=== PATIENT | female | born 2000 | race Caucasian/White ===

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

== ENCOUNTER 2021-12-12 15:33 | Outpatient (CLI) | payer OTHER, SELFPAY | END 2021-12-12 23:59 | disposition home or self-care (01) | PROVIDERS: PCP Pediatrics; Visit Provider Obstetrics & Gynecology | DX: Z34.81 Encounter for supervision of other normal pregnancy, first trimester (principal) | CPT/HCPCS: 87086; 87088 ==

== ENCOUNTER → 2022-03-28 | Outpatient (CLI) | payer OTHER, SELFPAY ==
[2022-03-28 15:29] LABS: Hematocrit 34.7 % (37-47); Hemoglobin 11.5 g/dL (12.0-15.0); Mean Corp Hgb Conc 33.1 g/dL (32-36); Mean Corpuscular Hgb 28.6 pg (27.0-32.0); Mean Corpuscular Volume 86.3 fL (81-99); Platelet Count 150 K/mm3 (150-450); RBC Distribution Width CV 13.6 % (11.6-14.6); RBC Distribution Width SD 42.6 fl (35.1-43.9); Red Blood Count 4.02 M/mm3 (4.2-5.4); White Blood Count 6.1 K/mm3 (4.4-11.0)
[2022-03-28 15:39] LABS: Glucose Challenge Gest 1H 50g 120 mg/dL (70-140)
== END | disposition home or self-care (01) ==
PROVIDERS: PCP Pediatrics; Visit Provider Obstetrics & Gynecology
DX: Z34.83 Encounter for supervision of other normal pregnancy, third trimester (principal)
CPT/HCPCS: 36415; 82950; 85027

== ENCOUNTER → 2022-04-17 | Outpatient (CLI) | payer OTHER, SELFPAY | END | disposition home or self-care (01) | LOC: WOBLAB 14:51 | PROVIDERS: PCP Pediatrics; Visit Provider Obstetrics & Gynecology | DX: Z34.83 Encounter for supervision of other normal pregnancy, third trimester (principal) | CPT/HCPCS: 36415 ==

== ENCOUNTER → 2022-06-13 | Outpatient (CLI) | payer OTHER, SELFPAY | END | disposition home or self-care (01) | LOC: LABSPEC 09:41 | PROVIDERS: PCP Registered Nurse; Visit Provider Obstetrics & Gynecology | DX: Z36.85 Encounter for antenatal screening for Streptococcus B (principal) | CPT/HCPCS: 87081 ==

== ENCOUNTER 2022-07-03 08:05 | Inpatient (IN) | payer OTHER, SELFPAY ==
[2022-07-03] VITALS (33 sets, daily range): BP systolic 120–147; BP diastolic 58–90; PULSE 87–116; RESP 16–18; TEMP 36.6–38.1; O2SAT 89–100; BMI 33.5
--- NOTE | 2022-07-03 10:41 | PCM.HP.BLA ---
History and Physical Date of Admission: 07/03/22 Chief complaint: Contractions History present illness: 21-year-old G1, P0 at 39 weeks and 1 day with YUAN: 07/09/2022 arrives with contractions. Denies headache, vision change, chest pain, shortness of breath, nausea vomit, right upper quadrant pain. Patient states good movement. Obstetric history: G1: Current Past medical history: Asthma Medications: Albuterol, vitamin Past surgical history: None Allergies: Bactrim, penicillin Social history: Denies smoking, alcohol use, drug use Family history: Denies history DVT or PE Review of systems: Besides above pertinent positives a full review of systems was performed and found to be negative Physical exam: Vitals: Pending General: Normal-appearing no acute distress HEENT: Normocephalic atraumatic no cervical of adenopathy Cardiac/respiratory: No use of accessory muscles, nonlabored breathing Abdomen: Soft, nontender, gravid Pelvic: Cervical exam 6/80/-1. AROM clear fluid Extremities: No peripheral edema normal peripheral pulses Psych: Normal affect normal demeanor nonpressured speech Labs: Pending Bedside ultrasound: Cephalic Assessment plan: 21-year-old at 39 weeks and 1 day in labor Admit labor and delivery CEFM GBS negative AROM clear fluid Routine orders
[2022-07-03] MEDS: Oxytocin 10 UNITS/ML Vial IM (12:38)
[2022-07-03] MEDS: miSOPROStol 200 MCG Tablet 1000 MCG RC (12:40)
--- NOTE | 2022-07-03 12:49 | OP.PCM_ITS ---
Vaginal Delivery Operative Information Date of Procedure: 07/03/22 Pre-Operative Diagnosis: Fried intrauterine Post-Operative Diagnosis: Fried intrauterine , cord avulsion, retained placenta Surgery / Procedure Performed: Spontaneous Vaginal Delivery Type of Anesthesia: None Estimated Blood Loss: 500 cc Findings Description of Procedure: Spontaneous vaginal delivery of viable infant male. Nuchal cord x2, loose, reduced. Baby to mom. Cord clamped and cut. Bilateral labial abrasion, hemostatic. Cord and membranes a avulsed with minimal traction. Attempted delivery with maternal pushing efforts and uterine massage, unsuccessful. Manual extraction of portion of placenta completed. Palpated large round bu lging left uterine horn. Palpated as though placental tissue was in this region on bimanual exam. Bedside ultrasound completed confirming majority of placental tissue at left uterine cornua, thin appearing myometrium surrounding circumferentially. Banjo curette was obtained. Manual extraction completed again with more placental tissue being removed. Called Dr. Héctor Marr for assistance and ultrasound evaluation. Upon his arrival remainder of placenta released and removed from left cornua. Bedside ultrasound confirmed no remaining placental tissue, within endometrial stripe. Banjo curettage was not completed. 1000 mcg Cytotec placed per rectum prophylactically. Patient declined IV pain medication during procedure when questioned several times. Will give 2 g Ancef prophylactic Marco for manual extraction of placenta. A Gender: Male (1 minute): 8 (5 minute): 9
[2022-07-03] MEDS: Lactated Ringers 1,000 ML 20 ML IV (14:05)
[2022-07-03] MEDS: Cefazolin 2 GM in 0.9% Normal Saline 100 ML IV (14:09)
[2022-07-03 14:14] LABS: Hematocrit 40.6 % (37-47); Hemoglobin 13.2 g/dL (12.0-15.0); Mean Corp Hgb Conc 32.5 g/dL (32-36); Mean Corpuscular Hgb 28.1 pg (27.0-32.0); Mean Corpuscular Volume 86.6 fL (81-99); RBC Distribution Width CV 14.1 % (11.6-14.6); Red Blood Count 4.69 M/mm3 (4.2-5.4)
[2022-07-03 14:15] LABS: Absolute Lymphocyte Count 1.12 X10^3/uL (0.83-4.51); Absolute Neutrophil Count 6.5 X10^3/uL (2.0-7.7); Basophil# 0.02 X10^3/uL; Basophil% 0.3 % (0-1); Eosinophil# 0.01 X10^3/uL; Eosinophils% 0.1 % (0-5); Lymphocyte # 1.12 X10^3/ul (0.83-4.51); Lymphocyte % 14.1 % (19-41); Mean Platelet Vol. 12.8 fl (6.2-12.0); Monocyte# 0.29 X10^3/uL; Monocyte% 3.6 % (0-10); Neutrophil # 6.46 X10^3/uL (2.7-7.7); Neutrophil % 81.3 % (47-70); Platelet Count 133 K/mm3 (150-450); RBC Distribution Width SD 44.4 fl (35.1-43.9)
[2022-07-03] MEDS: Benzocaine/Lanolin/Aloe Vera 1 SPRAY EACH TOPICAL (15:00)
[2022-07-03] MEDS: Acetaminophen 500 MG Tablet 1000 MG PO (17:04)
--- NOTE | 2022-07-03 17:50 | NURSING ---
Report received from Thea BAXTER, taking over pt care at this time.
[2022-07-03 17:58] LABS: ALB/GLOB Ratio 0.6 RATIO (0.9-2.4); AST(SGOT) 21 U/L (15-37); Alanine Aminotransfer ALT/SGPT 20 U/L (13-56); Albumin, Serum 2.7 g/dL (3.2-5.0); Alkaline Phosphatase 137 U/L (45-117); Anion Gap 11 (5-15); BUN 8 mg/dL (7-18); BUN/Creat Ratio 11.3 RATIO (10-20); Calcium,Total 9.5 mg/dL (8.5-10.1); Chloride 105 mmol/L (98-107); Creatinine, Serum 0.71 mg/dL (0.55-1.02); EST Glomerular Filtration Rate 111 mL/min (>60); Est Glom Filt Rate - Afr Amer 134 mL/min (>60); Estimated Creatinine Clearance 90.79 ml/min; Globulin 4.4 g/dL (2.2-4.2); Glucose 140 mg/dL (74-106); Potassium 3.6 mmol/L (3.5-5.1); Protein, Total 7.1 g/dL (6.4-8.2); Sodium Level 138 mmol/L (136-145)
[2022-07-03] MEDS: 0.9% Saline Lock 10 ML Syringe IV (20:34)
[2022-07-03 20:55] LABS: Mucous, Urine 0 SEEN /hpf (<or=2+)
[2022-07-03 20:59] LABS: Glucose, Dipstick Normal (Normal); Ketone-Dipstick 5 mg/dl (Negative); Leukocyte Esterase-Dipstick 500 /ul (Negative); Nitrite-Dipstick Negative (Negative); Occult Blood-Urine 250 /ul (Negative); Protein-Dipstick 30 mg/dl (Negative); Urine Bilirubin Dipstick Negative (Negative); Urine Clarity Sl. Cloudy (Clear); Urine Urobilinogen Normal (Normal); Urine pH 6.5 (5.0 - 8.0)
[2022-07-03 21:13] LABS: Protein, Urine (Random) 25.7 mg/dL (<11.9); Protein:Creat Ratio 1113 mg/g CRE (0-200)
[2022-07-03 21:19] LABS: Bacteria RARE /hpf (None Seen); Color, Urine SEE COMMENT BELOW (Yellow); Red Blood Cells-Urine 50-100 SEEN /hpf (0-5); Squamous Epithelial Cells - UA 0-5 SEEN /hpf (5-10); White Blood Cells 5-10 SEEN /hpf (0-5)
[2022-07-03] MEDS: Albuterol 2.5 MG/3 ML VIAL.NEB. INHALATION (21:50)
[2022-07-03] MEDS: Budesonide Respules 0.5 MG/2 ML AMPUL.NEB. INHALATION (21:50)
--- NOTE | 2022-07-04 01:57 | PN.OBGYN_ITS ---
Subjective Subjective day 1. Lochia minimal. Sore but pain is controlled. Objective Data Objective Data Vital Signs: Vital Signs Temp Pulse Resp BP Pulse Ox O2 Del Method 98.8 F 97 18 120/58 L 96 Room Air 07/03/22 23:48 07/03/22 23:48 07/03/22 23:48 07/03/22 23:48 07/03/22 23:48 07/03/22 23:48 Oxygen Delivery Method Room Air Weight: 78.018 kg Body Mass Index (BMI) 33.5 Intake & Output: Intake and Output for Last 24 Hours 07/02/22 07/03/22 07/04/22 23:59 23:59 23:59 Intake Total 710 / 710 Output Total 1000 / 1000 Balance -290 / -290 Lab / Micro Data Result Diagrams: 07/03/22 09:00 07/03/22 17:10 Labs: Laboratory Results - last 24 hr 07/03/22 09:00: Blood Type Cancelled, Antibody Screen Cancelled 07/03/22 09:00: Blood Type Cancelled, Antibody Screen Cancelled 07/03/22 09:00: Blood Type A NEGATIVE, Antibody Screen Not Reportable 07/03/22 09:00: WBC 8.0, RBC 4.69, Hgb 13.2, Hct 40.6, MCV 86.6, MCH 28.1, MCHC 32.5, RDW Std Deviation 44.4 H, RDW Coeff of Radha 14.1, Plt Count 133 L, MPV 12.8 H, Immature Gran % (Auto) 0.600, Neut % (Auto) 81.3 H, Lymph % (Auto) 14.1 L, [place] % (Auto) 3.6, Eos % (Auto) 0.1, Baso % (Auto) 0.3, Absolute Neuts (auto) 6.5, Absolute Lymphs (auto) 1.12 07/03/22 09:00: Antibody Screen NEGATIVE 07/03/22 17:10: Sodium 138, Potassium 3.6, Chloride 105, Carbon Dioxide 22.0, Anion Gap 11, BUN 8, Creatinine 0.71, Estim Creat Clear Calc 90.79, Est GFR ( RD) Af Amer 134, Est GFR (MDRD) Non-Af 111, BUN/Creatinine Ratio 11.3, Glucose 140 H, Calcium 9.5, Total Bilirubin 0.30, AST 21, ALT 20, Alkaline Phosphatase 137 H, Total Protein 7.1, Albumin 2.7 L, Globulin 4.4 H, Albumin/Globulin Ratio 0.6 L 07/03/22 20:40: Urine Color SEE COMMENT BELOW, Urine Clarity Sl. Cloudy, Urine pH 6.5, Ur Specific [place] 1.010, Urine Protein 30 H, Urine Glucose (UA) Normal, Urine Ketones 5 H, Urine Occult Blood 250 H, Urine Nitrite Negative, Urine Bilirubin Negative, Urine Urobilinogen Normal, Ur Leukocyte Esterase 500 H , Urine RBC 50-100 SEEN, Urine WBC 5-10 SEEN, Ur Squamous Epith Cells 0-5 SEEN, Urine Bacteria RARE, Urine Mucus 0 SEEN 07/03/22 20:40: U Random Total Protein 25.7 H, Urine Creatinine 23.10, Protein/Creatinin Ratio 1113 H Physical Exam Const alert, oriented x3 and no apparent distress HEENT normocephalic Head and Scalp: atraumatic Neck full ROM Resp normal respiratory effort Cardio regular rate GI normal to inspection, nondistended, normoactive bowel sounds GI Narrative: Uterus 2 cm below umbilicus Back/Spine normal ROM Extremity normal to inspection Extremity Narrative: Minimal pedal edema Neuro no focal motor deficits and no sensory deficits noted Psych mental status grossly normal and affect normal Assessment & Plan (1) Vaginal delivery: PLAN: day 1 status post . Complicated by retained placenta with manual extraction. Patient received Ancef and Cytotec prophylactically. Bleeding is minimal today. Baby is in special care for hypoglycemia. Mom is pumping. Diagnosis of gestational hypertension, CMP within normal limits. Urine protein creatinine likely contaminated with lochia. Likely discharge home tomorrow.
[2022-07-04 03:34] VITALS: BP 116/57; PULSE 96; RESP 16; TEMP 37; O2SAT 96
[2022-07-04 06:10] LABS: Hematocrit 38.5 % (37-47); Hemoglobin 12.5 g/dL (12.0-15.0); Mean Corp Hgb Conc 32.5 g/dL (32-36); Mean Corpuscular Hgb 28.1 pg (27.0-32.0); Mean Corpuscular Volume 86.5 fL (81-99); Mean Platelet Vol. 12.1 fl (6.2-12.0); Platelet Count 114 K/mm3 (150-450); RBC Distribution Width CV 14.4 % (11.6-14.6); RBC Distribution Width SD 45.1 fl (35.1-43.9); Red Blood Count 4.45 M/mm3 (4.2-5.4)
[2022-07-04 07:08] VITALS: PULSE 102; RESP 16
[2022-07-04] MEDS: Budesonide Respules 0.5 MG/2 ML AMPUL.NEB. INHALATION (07:08)
[2022-07-04 08:31] VITALS: BP 127/70; PULSE 94; RESP 16; TEMP 37.2
[2022-07-04 12:06] VITALS: BP 137/80; PULSE 89; RESP 16; TEMP 36.4
[2022-07-04] MEDS: FLU VACC QS2022-23(6MOS UP)/PF 60 MCG/0.5 ML SYRINGE IM (16:00)
[2022-07-04 16:08] VITALS: BP 113/68; PULSE 100; RESP 16; TEMP 36.8
[2022-07-04 22:00] VITALS: BP 113/79; PULSE 97; RESP 16; TEMP 36.7; O2SAT 96
[2022-07-05 02:22] VITALS: BP 126/81; PULSE 90; RESP 18; TEMP 36.6
--- NOTE | 2022-07-05 06:58 | DS.PCM_ITS ---
Discharge Summary Date of Admission: 07/03/22 Date of Discharge: 07/05/22 Summary: Patient arrived on 07/03/2022 in labor subsequently delivered vaginally on 07/03/2022. Retained placenta, resolved with manual extraction. Otherwise routine recovery. Patient discharged to [facility] status on 07/05/2022 Meaningful Use Info Meaningful Use Diagnoses (Choose all that apply): None applicable Discharge Plan Admission Admit Date/Time: 07/03/22 08:05 Primary Reason for Your Visit: labor Attending Provider: Christin Marr Primary Care Provider: Deborah Baker NP Instructions Additional Instructions / Restrictions: Regular diet. Weightbearing as tolerated. Okay to shower. No tub baths for 2 weeks. No intercourse for 4 to 6 weeks. Call if fevers, chills, chest pain, shortness of breath, visual changes, headache. Follow-up within 1 week for blood pressure check Discharge Orders/Prescriptions Prescriptions: No Action albuterol sulfate 90 mcg/actuation HFA aerosol inhaler 2 puff INHALATION PRN PRN (Reason: Resuce Breathing) Pulmicort Flexhaler 90 mcg/actuation aerosol powdr breath activated 2 inh INHALATION BID Label Comments: INHALE 2 PUFFS BY MOUTH TWICE DAILY DIRECTED. RINSE MOUTH AFTER USING. Referrals / Follow Up: Deborah Baker [employer]GRAMMER [employer], [employer] [Primary Care Provider] - Disposition Disposition (needs filled in before D/C Order can be placed): Home, Self Care
--- NOTE | 2022-07-05 06:59 | PN.OBGYN_ITS ---
Subjective Subjective No overnight complaints. Denies headache, visual changes, chest pain, shortness of breath, nausea vomit, right upper quadrant pain. Objective Data Objective Data Vital Signs: Vital Signs Temp Pulse Resp BP Pulse Ox O2 Del Method 97.8 F 90 18 126/81 H 96 Room Air 07/05/22 02:22 07/05/22 02:22 07/05/22 02:22 07/05/22 02:22 07/04/22 22:00 07/04/22 22:00 Oxygen Delivery Method Room Air Weight: 172 lb Body Mass Index (BMI) 33.5 Intake & Output: Intake and Output for Last 24 Hours 07/03/22 07/04/22 07/05/22 23:59 23:59 23:59 Intake Total 710 / 710 Output Total 1000 / 1000 Balance -290 / -290 Lab / Micro Data Result Diagrams: 07/04/22 06:03 07/03/22 17:10 Physical Exam Const alert, oriented x3, no apparent distress, average body habitus, healthy appearing and well nourished HEENT normocephalic and moist oral mucous membranes Eyes PERRL Neck full ROM Resp normal respiratory effort, no retractions and no use of accessory muscles Extremity normal to inspection, full ROM and no clubbing, cyanosis or edema Skin no rashes or lesions noted and no wounds Neuro moves all extremities and no focal motor deficits Psych mental status grossly normal, affect normal, speech normal and activity/motor behavior normal Assessment & Plan (1) Vaginal delivery: PLAN: day 2. Breast-feeding. Pain well controlled. Blood pressures well controlled. Patient asymptomatic. Baby in special care, to discharge to [facility] status today
[2022-07-05] MEDS: Ibuprofen 600 MG Tablet PO ×2 (07:40→14:55)
[2022-07-05] MEDS: Budesonide Respules 0.5 MG/2 ML AMPUL.NEB. INHALATION (07:44)
[2022-07-05 07:45] VITALS: PULSE 91; RESP 18
[2022-07-05 07:48] VITALS: BP 131/83; PULSE 105; RESP 16; TEMP 36.6; O2SAT 96
[2022-07-05 08:20] VITALS: BP 102/60; PULSE 83; RESP 16; TEMP 36.6; O2SAT 95
[2022-07-05 14:00] VITALS: BP 136/87; PULSE 98; RESP 16; TEMP 37; O2SAT 100
[2022-07-05] MEDS: Acetaminophen 500 MG Tablet 1000 MG PO (14:47)
[2022-07-05] MEDS: Senna/Docusate Sodium 1 Tablet PO (14:56)
--- NOTE | 2022-07-06 11:38 | CASEMGMT ---
Social Work Assessment REFERRAL Date of Referral: 07/03/22 Time of Referral: 11:52pm Date of Intervention: 07/06/22 Time of Intervention: 10:00am Referral site: [facility] Referred by: Laure Mayfield DO Reason for Referral: Discharge planning needs PSYCHOSOCIAL HISTORY: Presenting situation: Baby Gregg in special care nursery at [facility] for begin small for gestational age, vinay hypoglycemia. This is MOB's first child, she is 21. History obtained from: MOB. FOB's mother Criss also present for some of conversation but only participated minimally. Household composition: MOB, FOB, FOB's mother and FOB's 20 year old brother, and now baby Gregg. MOB and FOB living with FOB's mother. Patient's parent/guardian status: MOB is guardian of the baby Medical History: MOB: Asthma. Baby: Born 07/03/22, Apgars 8 & 9 at one and five minutes born at 12:06pm, 2395 grams. Baby is tongue tied, SGA and hypoglycemic. Developmental Concerns: None Educational Status: MOB completed high school and has some college credits. FOB went to [employer] school. Health Care Coverage: [employer] Financial Status: No concerns. 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 They have all needed supplies for baby including car seat, crib, bassinet, clothing, diapers, wipes, bottles. MOB plans to breastfeed. Childcare/Caregiver(s): Baby will go to day care when MOB returns to work. FOB's mother and FOB, in addition to MOB, will all help in care of the baby. Transportation: They have two vehicles Programs/Agencies Involved: None Behavioral Health Issues: SW asked FOB's mother Criss to step out for this part of the conversation. MOB reports no behavioral health concerns for MOB or FOB as per MOB. MOB did state FOB had some depression in high school. No substance abuse issues reported for MOB or FOB. MOB states no safety concerns. MOB also states no family history of mental health or substance abuse issues. No toxicology screens completed on MOB on this admission. Family Stressors: MOB reports none. Support Systems: MOB's parents, two sisters, FOB's mother. Assessment SW met w/MOB in the SCN, MOB just finished working with the compensation consultant. MOB appropriate in what SW observed in her care and handling of the baby. MOB answered all questions of SW, appropriate. SW gave information to MOB and reviewed with her information on depression and anxiety, shaken baby, safe sleeping, mental health resources, hotline information, [facility], and Help Me Grow. SW reviewed in particular information on symptoms of PPD, and that if she is having symptoms to speak w/her [employer] about it, as sometimes they may prescribe medication. SW also explained counseling can help should she have symptoms of PPD. MOB states understanding. Plan: Baby to go home w/MOB and FOB at discharge. Response to Plan: MOB in agreement with plan. No further social service needs anticipated at this time. ALISHA Ortiz 07/06/2022
== END 2022-07-05 14:56 | disposition home or self-care (01) | DRG 807 ==
PROVIDERS: Admitting Provider Student in an Organized Health Care Education/Training Program; PCP Registered Nurse; Visit Provider Student in an Organized Health Care Education/Training Program
DX: O69.81X0 Labor and delivery complicated by cord around neck, without compression, not applicable or unspecified (principal); Z37.0 Single live birth; O13.5 Gestational [pregnancy-induced] hypertension without significant proteinuria, complicating the puerperium; Z3A.39 39 weeks gestation of pregnancy; O73.1 Retained portions of placenta and membranes, without hemorrhage
CPT/HCPCS: 59025; 59050; 76815; 80053; 81001; 82570; 84156; 85025; 85027; 86850; 86900; 86901; 94640; 99218; J7120; 90686; A4216; G0378

== ENCOUNTER → 2022-09-05 | Outpatient (CLI) | payer OTHER, SELFPAY ==
[2022-09-08 05:08] LABS: Chlamydia By Nucleic Acid AMP Negative (Negative)
[2022-09-08 20:52] LABS: Gonococcus By Nucleic Acid AMP Negative (Negative)
== END | disposition home or self-care (01) ==
LOC: LABSPEC 12:02
PROVIDERS: PCP Registered Nurse; Visit Provider Obstetrics & Gynecology
DX: Z11.3 Encounter for screening for infections with a predominantly sexual mode of transmission (principal)
CPT/HCPCS: 87491; 87591

== ENCOUNTER → 2023-04-04 | Outpatient (CLI) | payer OTHER, SELFPAY ==
[2023-04-07 16:15] LABS: HPV Reflexed? NOT INDICATED
== END | disposition home or self-care (01) ==
LOC: LABSPEC 10:57
PROVIDERS: PCP Registered Nurse; Visit Provider Obstetrics & Gynecology
DX: Z12.4 Encounter for screening for malignant neoplasm of cervix (principal)
CPT/HCPCS: 88175; G0145